=== PATIENT | male | born 1985 ===

== ENCOUNTER 2024-08-31 18:21 | Emergency (ER) | payer OTHER ==
[~2024-08-31] VITALS: Ht 167.6 cm; Wt 86.4 kg
[2024-08-31 18:31] VITALS: TEMP 98.2
[2024-08-31] MEDS ORDERED: IBUP-1554 PO (19:45)
[2024-08-31] MEDS ORDERED: TERB250T90 PO (19:45)
[2024-08-31] MEDS ORDERED: BACI28.410 TP (19:45)
[2024-08-31] MEDS ORDERED: ACET-2080 PO (19:45)
[2024-08-31 21:09] VITALS: BP 128/68; PULSE 72; RESP 16; O2SAT 99
== END 2024-08-31 21:52 | disposition home or self-care (01) ==
LOC: EMS 18:21
DX: S90.112A Contusion of left great toe without damage to nail, initial encounter (principal); W19.XXXA Unspecified fall, initial encounter; Y93.89 Activity, other specified; Y92.89 Other specified places as the place of occurrence of the external cause; Y99.0 Civilian activity done for income or pay
CPT/HCPCS: 99283